=== PATIENT | female | born 1970 | race Caucasian/White ===

== ENCOUNTER → 2016-09-18 | Outpatient (CLI) | payer OTHER ==
[~2016-09-18] MED LIST: CYM/30 PO
[2016-09-18 16:49] LABS: URINE APPEARANCE CLEAR (CLEAR); URINE BILIRUBIN NEG (NEG); URINE COLOR YELLOW; URINE EPITHELIAL CELL AUTO >30 /lpf (0-5); URINE NITRITE NEG (NEG); URINE SPECIFIC GRAVITY 1.005 (1.000-1.030); UROBILINOGEN NEG (NEG)
[2016-09-18 16:50] LABS: MANUAL MICROSCOPIC REQUIRED? NO; REVIEW REQ? NO
[2016-09-23 23:36] LABS: ANTI-CENTROMERE AB <1.0 NEG AI (<1.0 NEG); ANTI-SS-A <1.0 NEG AI (<1.0 NEG); ANTI-SS-B <1.0 NEG AI (<1.0 NEG); DNA ds CRITHIDIA NEGATIVE (NEGATIVE); MYELOPEROXIDASE AB <1.0 AI (<1.0); Sm Antibody <1.0 NEG AI (<1.0 NEG)
== END | disposition home or self-care (01) ==
LOC: C.LAB1850 14:42
PROVIDERS: ATTEND Internal Medicine Rheumatology
DX: H20.00 Unspecified acute and subacute iridocyclitis (principal); R76.8 Other specified abnormal immunological findings in serum

== ENCOUNTER → 2016-09-20 | Outpatient (CLI) | payer OTHER ==
--- NOTE | 2016-09-20 14:32 | MAMMOGRAPHY REPORT ---
BILATERAL DIGITAL SCREENING MAMMOGRAM TOMOSYNTHESIS WITH CAD: 09/20/2016 CLINICAL HISTORY: Routine screening. Patient has no complaints. TECHNIQUE: Bilateral breast tomosynthesis in addition to standard 2D mammography was performed. Curr ent study was also evaluated with a Computer Aided Detection (CAD) system. COMPARISON: Comparison is made to exams dated: 09/06/2015 mammogram, 02/18/2013 mammogram, 09/01/2014 m ammogram, 09/01/2014 ultrasound, and 08/23/2014 mammogram - [facility]. BREAST COMPOSITION: The tissue of both breasts is heterogeneously dense, which may obscure small ma sses. FINDINGS: The parenchymal pattern is similar to prior exams. No suspicious mass, architectural disto rtion or cluster of microcalcifications is seen. IMPRESSION: ACR BI-RADS CATEGORY 1: NEGATIVE There is no mammographic evidence of malignancy. A 1 year screening mammogram is recommended. The p atient will receive written notification of the results. Approximately 10% of breast cancers are not detected with mammography. A negative mammographic repor t should not delay biopsy if a clinically suggestive mass is present. Coreen Lerma M.D. ay/:09/20/2016 12:42:06 Community Nutrition Educator: Saranya Roberto RT(R)(M), [facility] letter sent: Normal 1/2 BI-RADS Code: ACR BI-RADS Category 1: Negative
== END | disposition home or self-care (01) ==
LOC: C.MAMM 10:00
PROVIDERS: ATTEND Emergency Medicine
DX: Z12.31 Encounter for screening mammogram for malignant neoplasm of breast (principal)

== ENCOUNTER → 2017-07-09 | Outpatient (CLI) | payer BC, OTHER | END | disposition home or self-care (01) | LOC: C.RDSM 16:50 | PROVIDERS: ATTEND Orthopaedic Surgery Sports Medicine | DX: M25.572 Pain in left ankle and joints of left foot (principal); Z09 Encounter for follow-up examination after completed treatment for conditions other than malignant neoplasm ==

== ENCOUNTER → 2017-11-06 | Outpatient (CLI) | payer BC ==
--- NOTE | 2017-11-07 14:18 | MAMMOGRAPHY REPORT ---
BILATERAL DIGITAL SCREENING MAMMOGRAM TOMOSYNTHESIS WITH CAD: 11/06/2017 CLINICAL HISTORY: Routine screening. Patient has no complaints. TECHNIQUE: Breast tomosynthesis in addition to standard 2D mammography was performed. Current study was also evaluated with a Computer Aided Detection (CAD) system. COMPARISON: Comparison is made to exams dated: 09/20/2016 mammogram, 09/06/2015 mammogram, 09/01/2014 ma mmogram, 09/01/2014 ultrasound, 08/23/2014 mammogram, and 02/18/2013 mammogram - [facility] enter. BREAST COMPOSITION: The tissue of both breasts is heterogeneously dense, which may obscure small mas ses. FINDINGS: There are grouped calcifications within the left upper outer posterior breast, for which sp ot magnification views are recommended for further evaluation. The remainder of both breasts are stable compared to prior exams, without suspicious masses, calcific ations, or areas of architectural distortion noted. IMPRESSION: ACR BI-RADS CATEGORY 0: INCOMPLETE EVALUATION: NEED ADDITIONAL IMAGING EVALUATION Left breast calcifications, for which additional imaging evaluation is recommended. The patient will be called to schedule an appointment. Approximately 10% of breast cancers are not detected with mammography. A negative mammographic report should not delay biopsy if a clinically suggestive mass is present. Lucy Clayton M.D. /:11/06/2017 13:46:39 Screed Operator: Cris Wiggins [facility] letter sent: Addl Imaging 0 BI-RADS Code: ACR BI-RADS Category 0: Incomplete Evaluation: Need Additional Imaging Evaluation
== END | disposition home or self-care (01) ==
LOC: C.MAMM 13:21
PROVIDERS: ATTEND Family Medicine
DX: Z12.31 Encounter for screening mammogram for malignant neoplasm of breast (principal)